=== PATIENT | male | born 1985 | race Two or more races ===

== ENCOUNTER 2024-07-04 03:17 | Emergency (ER) | payer MEDICAID, SELFPAY ==
[2024-07-04 03:18] VITALS: BMI 28.8
[2024-07-04 03:23] VITALS: BP 147/84; PULSE 81; RESP 18; TEMP 36.6; O2SAT 98
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
[2024-07-04] MEDS: IBUPROFEN TAB 400 MG TABLET 800 MG PO (03:57)
[2024-07-04] MEDS: HYDROcodone/APAP 5/325 TABLET 1 TAB PO (03:58)
[2024-07-04] MEDS: MORPHINE SULF INJ 10 MG/ML VIAL 5 MG IM (05:18)
[2024-07-04] MEDS: ONDANSETRON ODT 4 MG TABRAP PO (05:18)
[2024-07-04 05:36] VITALS: RESP 16
== END 2024-07-04 05:37 | disposition home or self-care (01) ==
PROVIDERS: Emergency Provider Emergency Medicine; PCP Physician Assistant Medical
DX: M25.511 Pain in right shoulder (principal); R07.89 Other chest pain
CPT/HCPCS: 71046; 73030; 96372; 99284; J2270; Q0162; A9270

== ENCOUNTER 2025-01-16 12:02 | Emergency (ER) | payer MEDICAID, SELFPAY ==
--- NOTE | 2025-01-16 12:08 | EKG_ITS ---
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
[2025-01-16 12:16] VITALS: BP 153/70; PULSE 91; RESP 18; TEMP 36.8; O2SAT 97; BMI 27.1
--- NOTE | 2025-01-16 12:19 | XR_ITS ---
EXAMINATION: PA lateral chest 2 views TECHNIQUE: Upright PA lateral chest 2 views Date and time: January 16, 2025, 12:25 p.m., comparison 11/04/2024 INDICATIONS: Chest pain beginning 2 days ago. FINDINGS: Minor prominence left ventricle No pneumonia or pulmonary edema. Intact osseous structures IMPRESSION: No active disease
--- NOTE | 2025-01-16 12:19 | PD.EDRME ---
Rapid Medical Screening Exam RME Arrival date/time: 01/16/25 12:02 39-year-old male presents to the emergency department for complaints of chest pain Chief Complaint: Chest Pain Vital signs reviewed by provider: Yes Exam: On exam patient well-appearing does not appear ill or toxic Clinical Impression: Lab work, imaging, EKG obtained
[2025-01-16 12:59] LABS: Basophils # (Auto) 0.0 Thou/mm3 (0.0-0.2); Basophils % (Auto) 0 % (0-2.5); Eosinophils # (Auto) 0.1 Thou/mm3 (0.0-0.5); Eosinophils % (Auto) 1 % (0-10); Hematocrit 45.7 % (41.0-53.0); Hemoglobin 15.9 g/dL (13.5-16.0); Immature Granulocytes Auto 0.02 Thou/mm3 (0.00-0.00); Lymphocytes # (Auto) 2.5 Thou/mm3 (1.0-4.8); Lymphocytes % (Auto) 36 % (10-50); Mean Corpuscular HGB Conc 34.8 g/dl (31.0-37.0); Mean Corpuscular Hemoglobin 30.1 pg (25.0-35.0); Mean Corpuscular Volume 86 fL (80-100); Monocytes # (Auto) 0.5 Thou/mm3 (0.0-0.8); Monocytes % (Auto) 7 % (0-12); Neutrophils # (Auto) 3.9 Thou/mm3 (1.8-7.7); Neutrophils % (Auto) 55 % (37-80); Nucleated Red Blood Cell # 0.00 Thou/mm3 (0.00-0.00); Nucleated Red Blood Cell % 0 /100 WBC (0); Platelet Count 283 Thou/mm3 (140-440); RDW Standard Deviation 36.7 fL (35.1-43.9); Red Blood Count 5.29 Miln/mm3 (4.50-5.90); White Blood Count 7.0 Thou/mm3 (3.8-10.6)
[2025-01-16 13:13] LABS: Amphetamine/Methamp Scrn,U Negative (Negative); Barbiturate Screen,Urine Negative (Negative); Benzodiazepines Screen,Urine Negative (Negative); Benzoylecgonine Screen, Ur Negative (Negative); Fentanyl Screen,Urine Negative (Negative); Opiate Screen,Urine Negative (Negative); THC Screen,Urine Positive (Negative)
[2025-01-16 13:27] LABS: Alanine Aminotransferase 78 U/L (10-49); Albumin, Serum 5.1 gm/dL (3.5-5.0); Albumin/Globulin Ratio 1.9 (1.2-2.2); Alkaline Phosphatase 119 U/L (46-116); Anion Gap 7 (7-16); Aspartate Amino Transferase 48 U/L (0-34); BUN/Creatinine Ratio 8 Ratio (12-20); Bilirubin,Total 0.8 mg/dL (0.3-1.2); Blood Urea Nitrogen 10 mg/dL (9-23); Calcium 9.6 mg/dL (8.3-10.6); Calcium (Corrected) 9.6 mg/dL (8.5-10.1); Carbon Dioxide 24.3 mMol/L (20.0-31.0); Chloride 109 mMol/L (98-107); Creatinine (Component) 1.2 mg/dL (0.6-1.3); Estimated Creatinine Clearance 78.0 mL/min (>60); Globulin 2.7 gm/dL (2.3-3.5); Glucose 108 mg/dL (74-106); Lipase 33 U/L (12-53); Osmolality,Calculated 279 (275-295); Potassium 4.2 mMol/L (3.4-5.1); Sodium 140 mMol/L (136-145); Total Protein 7.8 gm/dL (5.7-8.2); Troponin I < 0.020 ng/mL (0.0-0.045); eGFR > 60 See Note
[2025-01-16 15:21] VITALS: BP 162/87; PULSE 73; RESP 18; TEMP 37; O2SAT 98
--- NOTE | 2025-01-16 15:33 | EKG_ITS ---
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
[2025-01-16 16:21] LABS: D-Dimer < 250 ng/mL (<600)
[2025-01-16 16:34] LABS: Magnesium 1.8 mg/dL (1.6-2.6); Troponin I < 0.020 ng/mL (0.0-0.045)
--- NOTE | 2025-01-16 17:05 | EDNOTE_ITS ---
ED Chest Pain RME/HPI General Chief Complaint: Chest Pain Stated Complaint: CHEST PAIN X 3 DAYS Time Seen by Provider: 01/16/25 15:32 Arrival date/time: This is a case of 39-year-old male with history of anxiety came in in the emergency room due to on and off chest pain midsternal in location nonradiating for 3 days patient went to [facility] and noted that the heart rate was high thus sent here for further evaluation and treatment patient denies any palpitation patient heart rate here in the emergency room is 73 no shortness of breath patient is feeling anxious at the time of exam denies suicidal homicidal ideation denies hallucination Limitations: no limitations RME / HPI RME / HPI narrative: 01/16/25 12:02 39-year-old male presents to the emergency department for complaints of chest pain Exam: On exam patient well-appearing does not appear ill or toxic Impression: Lab work, imaging, EKG obtained Related Data Home Medications ?Medication ?Instructions ?Recorded ?Confirmed albuterol sulfate 90 mcg/actuation 2 puff inhalation Q 6H PRN 09/25/17 09/25/17 aerosol inhaler Respiratory Distress Previous Rx's ?Medication ?Instructions ?Recorded ibuprofen 800 mg tablet (IBU) 800 mg PO Q8H #20 tabs 0 03/01/23 tamsulosin 0.4 mg capsule (Flomax) 0.4 mg PO QDAY #14 caps 03/01/23 ibuprofen 600 mg tablet 600 mg PO Q6H PRN pain #30 t abs 07/04/24 lidocaine 5 % topical patch 1 patch topical QDAY #6 ea 07/04/24 methocarbamol 500 mg tablet 1,000 mg (2 x 500 mg) PO Q 8H PRN 07/04/24 pain #30 tabs hydroxyzine HCl 25 mg tablet 25 mg PO BID PRN anxiety #10 tabs 01/16/25 ibuprofen 800 mg tablet 800 mg PO Q8H PRN pain #20 t abs 01/16/25 Allergies Allergy/AdvReac Type Severity Reaction Status Date / Time No Known Allergies Allergy Verified 01/16/25 12:06 Review of Systems Review of Systems Systems Reviewed: All systems reviewed, normal except as documented Constitutional Constitutional: Reports system reviewed and no additional complaints, except as documented and Reports as per HPI Cardiovascular Cardiovascular: Reports system reviewed and no additional complaints, except as documented, Reports as per HPI, Reports chest pain, Denies chest pain at rest, Denies chest pain with activity, Denies claudication, Denies diaphoresis, Denies dyspnea, Denies dyspnea on exertion, Denies edema, Denies irregular heart rhythm, Denies leg edema, Denies leg ulcers, Denies lightheadedness, Denies orthopnea, Denies palpitations, Denies paroxysmal nocturnal dyspnea, Denies pedal edema, Denies radiating jaw, neck or arm pain, Denies rapid heart rate, Denies slow heart rate and Denies syncope Respiratory Respiratory: Reports system reviewed and no additional complaints, except as documented, Reports as per HPI, Denies dyspnea and Denies dyspnea on exertion Neurologic Neurologic: Reports system reviewed and no additional complaints, except as documented, Reports as per HPI and Denies syncope Endocrine Endocrine: Denies palpitations Past Medical History Past Medical History CARDIAC: Negative Congestive Heart Failure RESPIRATORY: Positive Asthma; Negative Chronic Obstructive Pulmonary Disease (COPD) GASTROINTESTINAL: Positive Ulcer GENITOURINARY: Negative Renal Disease ENDOCRINE: Negative Diabetes Mellitus Type 1 or Diabetes Mellitus Type 2 HEMATOLOGIC: Positive Anemia Social History SMOKING STATUS: Never smoker SUBSTANCE USE: does not use ED Exam General Limitations: Present no limitations General appearance: Present alert, in no apparent distress and other (Awake alert oriented x 4 no focal deficit GCS 15/15 steady gait not in distress nontoxic looking) Head Head exam: Present atraumatic, normocephalic and normal inspection Eye Eye exam: Present normal appearance, PERRL and EOMI ENT ENT exam: Present normal exam, normal oropharynx and mucous membranes moist Neck Neck exam: Present normal inspection, full ROM and trachea midline; Absent tenderness, meningismus, lymphadenopathy or thyromegaly Chest Chest inspection: Present normal inspection and symmetric chest wall rise; Abse nt tenderness Respiratory Respiratory exam: Present normal lung sounds bilaterally; Absent respiratory distress, wheezes, stridor, accessory muscle use or prolonged expiratory phase Cardiovascular Cardiovascular exam: Present regular rate, normal rhythm, normal heart sounds, clicks and other (no pitting edema); Absent bradycardia, tachycardia, irregular rhythm, systolic murmur or diastolic murmur Abdominal Exam Abdominal exam: Present soft and normal bowel sounds; Absent distention, tenderness, guarding, rebound, rigidity, diminished bowel sounds, hyperactive bowel sounds, hypoactive bowel sounds or organomegaly Extremities Exam Extremities exam: Present normal inspection and full ROM Back Exam Back exam: Present normal inspection and full ROM Neurological Exam Neurological exam: Present alert, oriented X3, CN II-XII intact, normal gait and reflexes normal; Absent motor sensory deficit Psychiatric Psychiatric exam: Present normal affect, normal mood, anxious and other (no hallucination); Absent depressed, agitated, flat affect, manic, homicidal ideation or suicidal ideation Skin Skin exam: Present warm, dry, intact and normal color Course Quality Measures none Orders Category Date Time Status EKG (ED ONLY) *Do not use* NOW Care 01/16/25 12:08 Completed EKG (ED ONLY) *Do not use* NOW Care 01/16/25 15:33 Completed EKG (ED Only) Stat Exams 01/16/25 12:08 Draft EKG (ED Only) Stat Exams 01/16/25 15:33 Draft XR chest 2V Stat Exams 01/16/25 12:19 Completed CBC Stat Lab 01/16/25 12:46 Completed Comprehensive Metabolic Panel Stat Lab 01/16/25 12:46 Completed D-Dimer Stat Lab 01/16/25 15:43 Completed Drug Screen,Urine Stat Lab 01/16/25 12:46 Completed Lipase Stat Lab 01/16/25 12:46 Completed Magnesium Stat Lab 01/16/25 15:43 Completed Troponin I Stat Lab 01/16/25 12:46 Completed Troponin I Stat Lab 01/16/25 15:43 Completed Ibuprofen Tab [Motrin Tab] Med 01/16/25 16:59 Discontinued 800 mg PO X1 ONE LORazepam [Ativan] Med 01/16/25 16:59 Discontinued 1 mg PO X1 ONE Vital Signs Vital signs: Vital Signs Temperature 98.3 F 01/16/25 12:16 Pulse Rate 91 01/16/25 12:16 Respiratory Rate 18 01/16/25 12:16 Blood Pressure 153/70 H 01/16/25 12:16 Pulse Oximetry (%) 97 01/16/25 12:16 Oxygen Delivery Method Room Air 01/16/25 12:16 Oxygen saturation is 97% in room air Chest Pain MDM Narrative MDM Narrative:: This is a case of 39-year-old male with history of anxiety came in in the emergency room due to on and off chest pain midsternal in location nonradiating for 3 days patient went to [facility] and noted that the heart rate was high thus sent here for further evaluation and treatment patient denies any palpitation patient heart rate here in the emergency room is 73 no shortness of breath patient is feeling anxious at the time of exam denies suicidal homicidal ideation denies hallucination physical examination patient is awake alert oriented not in distress nontoxic looking well-hydrated well-nourished vital signs noted BP a little bit elevated 162/73 not tachycardic heart rate 73 not tachypneic not hypoxic and afebrile negative for meningeal sign lung sounds is clear equal breath sounds no crackles no rales no retraction no wheezing heart normal rate regular rhythm no murmur no pitting edema the rest of the physical examination neurological exam is normal and unremarkable mental exam noted mild anxiety no depression no hallucination no suicidal ideation no hallucination blood test showed no leukocytosis no anemia kidney and liver function is normal no electrolyte imbalance urinalysis is abnormal 2 troponin is negative D-dimer is negatve magnesium is normal no EKG was performed both of them were normal sinus rhythm with a heart rate of 84 and 71 with some PVCs no ischemia at this point patient will be discharged home with stable patient will follow-up with PCP in 2 days for reevaluation and to be referred to terminal system operator for echocardiogram stress test and Holter monitor for further evaluation and treatment of chest pain and PVC patient also need to monitor blood pressure and was told to monitor blood pressure twice a day if the blood pressure greater than 160/100 become symptomatic return to the emergency room immediately or call 911 she also need to see PCP for possible start on medication for hypertension for any recurrence persistent worsening symptoms or any emergent concern call 911 or go to the nearest emergency room at the time of exam there is no signs and symptoms of myocardial infarction nor pulmonary embolism or any pulmonary cardiac in origin Patient was discharged with comfortable condition walking with stable gait. P atient verbalized no further complains explained diagnosis and answered patient question. Patient is comfortable with the proposed management plan including the need to follow up with his/her primary care physician and any specialist if applicable Discussed patient for any urgent condition or worsening sx, He/She needed to go to emergency room immediately or call 911. Patient acknowledge the responsibility to follow up as instructed and to monitor her/his symptoms. For any persistence of the symptoms for more than 3-5 days return precaution advised. Discussed the result of the test and was given printed discharge instruction Patient data External records reviewed:: [facility] previous records Clinical information provided by:: patient Social determinants that could affect healthcare access:: none Patient has the following chronic illnesses:: none How is presenting disease/condition affected by chronic disease/condition?: no chronic disease Evaluation data The following diagnostics were reviewed and interpreted by me:: lab results, radiology exam(s) and EKG tracing(s) Lab and/or radiology exams considered but not ordered:: reviewed Interpretation Summary: reviewed Medications / Prescriptions Medications or Prescriptions considered but not ordered:: given Medication administrations:: Medication Administration History Discontinued Medications Ibuprofen (Ibuprofen Tab 400 Mg Tablet) 800 mg PO X1 ONE Stop: 01/16/25 17:00 Lorazepam (Lorazepam 0.5 Mg Tablet) 1 mg PO X1 ONE Stop: 01/16/25 17:00 given Consultations Consultation(s) initiated? (list below): Yes Consultation #1 (Physician, Specialty, Details): dr del rosario ekg consult normal only pvc patient can be discharged ffup terminal system operator Diagnosis Chest Pain Differential Diagnosis: atypical chest pain, costochondritis and chest pain Most likely diagnosis given after review of the tests above:: chest pain unknown etioloy Admission Indicated Admission indicated?: not indicated Explain why admission is indicated or not indicated:: not indicated Admission Request Was there a request for admission?: No Admission Attestation Admission request attestation: not indictaed Disposition Plan Disposition Plan: Discharge Discharge Attestation Discharge Attestation: The patient and all family members were given an opportunity to ask questions and understood the discharge instructions. Discharge instructions specifically effects, indications for sooner follow up or return to the emergency department, and the expected course of current diagnosis. Patient condition: Stable Discharge Plan Plan Patient Disposition: HOME (Self Care) Patient condition on transfer: Stable Prescriptions/Referrals Prescriptions/Med Rec: New ibuprofen 800 mg tablet 800 mg PO Q8H PRN (Reason: pain) Qty: 20 0RF hydroxyzine HCl 25 mg tablet 25 mg PO BID PRN (Reason: anxiety) Qty: 10 0RF No Action albuterol sulfate 90 mcg/actuation Hfa Aerosol Inhaler 2 puff INHALATION Q6H PRN (Reason: Respiratory Distress) tamsulosin [Flomax] 0.4 mg capsule 0.4 mg PO QDAY Qty: 14 0RF ibuprofen [IBU] 800 mg tablet 800 mg PO Q8H Qty: 20 0RF ibuprofen 600 mg tablet 600 mg PO Q6H PRN (Reason: pain) Qty: 30 0RF methocarbamol 500 mg tablet 1,000 mg PO Q8H PRN (Reason: pain) Qty: 30 0RF lidocaine 5 % adhesive patch,medicated 1 patch topical QDAY Qty: 6 0RF Rx Instructions: leave on most painful area for up to 12 hrs Referrals: Austen Sam PA-C [Primary Care Provider] - In 1 week Problem List Clinical Impression: Chest pain of unknown etiology, Asymptomatic PVCs, Anxiety, Elevated blood- pressure reading without diagnosis of hypertension Patient/Caregiver Discharge Instructions Education Materials: PVCs, ED Anxiety Reaction, ED Chest Pain, Uncertain Cause, ED Hypertension, To Be Confirmed Additional Instructions: Follow-up with your primary care physician in 2 days for reevaluation and to be referred to terminal system operator for further evaluation and treatment of chest pain and PVCs for possible echocardiogram stress test and Holter monitor recurrence persistent worsening symptoms or any emergent concern call 911 or go to the nearest emergency room he also need to see psychiatry psychology for anxiety keep hydrated monitor your blood pressure twice a day and if your blood pressure greater than 160/100 or become symptomatic return to the emergency room immediately or call call 911 left with your primary care physician to review your blood pressure and possible start on blood pressure medication Print Language: Greenlandic Stand Alone Forms: Melissa Award Info., Patient Portal Info Letter LYNN/CORNELIA Supervising Physician LYNN/CORNELIA Supervising Physician: Dr brown
[2025-01-16] MEDS: IBUPROFEN TAB 400 MG TABLET 800 MG PO (17:27)
[2025-01-16 18:04] VITALS: BP 160/77; PULSE 63; RESP 17; O2SAT 98
== END 2025-01-16 18:20 | disposition home or self-care (01) ==
PROVIDERS: Nurse Practitioner Family; Nurse Practitioner Primary Care; Emergency Provider Emergency Medicine; PCP Physician Assistant Medical
DX: F41.9 Anxiety disorder, unspecified (principal); R07.9 Chest pain, unspecified; I49.3 Ventricular premature depolarization; R03.0 Elevated blood-pressure reading, without diagnosis of hypertension
CPT/HCPCS: 36415; 71046; 80053; 80307; 83690; 83735; 84484; 85025; 85379; 93005; 99283; A9270